=== PATIENT | male | born 1990 | race Caucasian/White ===

== ENCOUNTER 2025-09-08 13:31 | Outpatient (CLI) | payer OTHER | END 2025-09-08 13:32 | disposition home or self-care (01) | LOC: BICMRI 13:31 | PROVIDERS: ATTEND Podiatrist | DX: M76.61 Achilles tendinitis, right leg (principal); M79.671 Pain in right foot; M72.2 Plantar fascial fibromatosis; S96.011A Strain of muscle and tendon of long flexor muscle of toe at ankle and foot level, right foot, initial encounter ==